=== PATIENT | female | born 1960 | race Caucasian/White ===

== ENCOUNTER → 2016-10-29 | Outpatient (REF) ==
--- NOTE | 2016-10-29 09:30 | DI ---
EXAM: PA and lateral views of the chest HISTORY: Annual screening COMPARISON: Chest x-ray 10/03/2014 and multiple priors FINDINGS: The cardiomediastinal silhouette is normal. There is no pneumothorax or pleural effusion . There is no consolidation, nodule or mass. The osseous structures demonstrate increased density material of the cervical spine suggestive of surgical intervention which is incompletely visualized. The osseous structures are otherwise unchanged. IMPRESSION: No acute cardiopulmonary process
== END ==
LOC: RAD 09:08
DX: Z02.89 Encounter for other administrative examinations (principal)